=== PATIENT | male | born 1935 | race Caucasian/White ===

== ENCOUNTER 2016-10-02 05:43 | Emergency (ER) | payer MEDICARE, OTHER ==
[~2016-10-02] VITALS: Ht 185.4 cm; Wt 65.8 kg
--- OUTSIDE RECORDS SUMMARY | ~2016-10-02 | XMS ---
Demographics + + + | Address | [address] | | | [place] [address] | + + + | Preferred Language | Unknown | + + + | Marital Status | Unknown | + + + | Hinduism Affiliation | Unknown | + + + | Race | Unknown | + + + | Ethnic Group | Unknown | + + + Author + + + | Author | [facility] | + + + | Organization | [facility] | + + + | Address | [address] | | | [place] [address] | + + + | Phone | | + + + Care Team Providers + + + + | Care Medical Charge Entry Specialist Name | Role | Phone | + + + + Unavailable | Unavailable | + + + + PROBLEMS +---------+ + + +--------+ + + | Type | Condition | ICD9-CM | SFE37-AK | Onset | Condition | SNOMED | | | | Code | Code | Dates | Status | Code | +---------+ + + +--------+ + + | Problem | Osteoporos | | M81.0 | | Active | [id number] | | | is | | | | | | +---------+ + + +--------+ + + | Problem | Gastroesop | K21.9 | | | Active | [id number] | | | hageal | | | | | | | | reflux | | | | | | | | disease | | | | | | | | without | | | | | | | | esophagiti | | | | | | | | s | | | | | | +---------+ + + +--------+ + + | 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 | | | | | 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 | | | hyperplasi | | | | | | | | a with | | | | | | | | lower | | | | | | | | urinary | | | | | | | | tract | | | | | | | | symptoms, | | | | | | | | unspecifie | | | | | | | | d | | | | | | | | morphology | | | | | | +---------+ + + +--------+ + + | Problem | Hyperchole | | E78.0 | | Active | [id number] | | | sterolemia | | | | | | +---------+ + + +--------+ + + | Problem | Depression | | F32.9 | | Active | [id number] | +---------+ + + +--------+ + + | 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 | | | | | | +---------+ + + +--------+ + + | Problem | Hypertensi | I11.9 | | | Active | [id number] | | | ve | | | | | | | | cardiomyop | | | | | | | | athy, | | | | | | | | without | | | | | | | | heart | | | | | | | | failure | | | | | | +---------+ + + +--------+ + + | 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
[~2016-10-02 05:43] MED LIST: ACETAMINOPHEN325 M1 PO; ADVAIR 500-501 EACH INH; ALENDRONATE SOD70 MG PO; AMLODIPINE BESYL5 MG PO; ASPIRIN EC325 MG PO; ASPIRIN325 MG PO; ATORVASTATIN CA20 MG PO; CETIRIZINE HCL10 MG PO; CLINDAMYCIN HC150 MG PO; CYCLOBENZAPRINE10 MG PO; DILTIAZEM 24HR360 MG PO; DILTIAZEM ER240 M1 PO; DONEPEZIL HCL10 MG PO; FEOSOL325 MG PO; FERROCITE324 MG PO; FIBER LAXATIV0.52 GM PO; FLOMAX0.4 MG PO; IPRAT-ALBUT 0.5-3 ML INH; LEVAQUIN500 MG PO; LEVOFLOXACIN500 MG PO; LMX TOP; MELOXICAM15 MG PO; METAMUCIL660 GM PO; METOPROLOL SUC100 MG PO; METOPROLOL SUC200 MG PO; MIRTAZAPINE30 MG PO; MULTI VITAMIN1 EACH PO; NYSTATIN15 GM TOP; OMEPRAZOLE20 MG PO; OXYCODONE-ACET1 EAC1 PO; PERCOCET 5-3251 EACH PO; PREDNISONE20 MG PO; PROAIR HFA8.5 GM INH; RANITIDINE HCL150 MG PO; TAMSULOSIN HCL0.4 MG PO; VITAMIN C500 M1 PO; VITAMIN D1000 UNI1 PO; VITAMIN D5000 UNIT PO
[2016-10-02] MEDS ORDERED: ADVAIR 500-501 EACH INH (06:08)
[2016-10-02] MEDS ORDERED: PROAIR HFA8.5 GM INH (06:11)
[2016-10-02] MEDS ORDERED: ZITHROMAX250 MG PO (08:19)
== END 2016-10-02 08:38 | disposition home or self-care (01) ==
LOC: ED 05:43
DX: J44.9 Chronic obstructive pulmonary disease, unspecified (principal); F03.90 Unspecified dementia, unspecified severity, without behavioral disturbance, psychotic disturbance, mood disturbance, and anxiety; I10 Essential (primary) hypertension; E78.00 Pure hypercholesterolemia, unspecified; D32.9 Benign neoplasm of meninges, unspecified; K21.9 Gastro-esophageal reflux disease without esophagitis; Z87.891 Personal history of nicotine dependence; Z88.8 Allergy status to other drugs, medicaments and biological substances; Z79.899 Other long term (current) drug therapy; Z79.82 Long term (current) use of aspirin
CPT/HCPCS: 71010; 80053; 81001; 85025; 99283

== ENCOUNTER 2017-08-03 20:07 | Emergency (ER) | payer MEDICARE, OTHER ==
[~2017-08-03] VITALS: Ht 185.4 cm; Wt 65.8 kg
[~2017-08-03 20:07] MED LIST changes: +ZITHROMAX250 MG PO
[2017-08-03] MEDS ORDERED: ADVAIR 500-501 EACH INH (20:51)
--- NOTE | 2017-08-03 21:58 | EKG ---
[facility] [address] [facility] [place] [address] Signed Atrial fibrillation with rapid ventricular response Left axis deviation Nonspecific intraventricular block Abnormal ECG When compared with ECG of 22-JUN-2016 07:58, No significant change was found Confirmed by LI HIDALGO MD ([id number]) on 08/03/2017 9:58:08 PM Electronically Signed By: LI HIDALGO MD 08/03/17 2158 PATIENT NAME: JOVANMEGHNA CHRIS Electrocardiogram DATE OF : 39 PHYSICIAN: LI HIDALGO MD REPORT #: [id number] REPORT IS CONFIDENTIAL AND NOT TO BE RELEASED WITHOUT AUTHORIZATION
[2017-08-03] MEDS ORDERED: KEFLEX500 MG PO (22:35)
== END 2017-08-03 23:08 | disposition home or self-care (01) ==
LOC: ED 20:07
PROC: 0T9B70Z Drainage of Bladder with Drainage Device, Via Natural or Artificial Opening (ICD-10-PCS; principal; 2017-08-03)
DX: I48.0 Paroxysmal atrial fibrillation (principal); N39.0 Urinary tract infection, site not specified; I10 Essential (primary) hypertension; J44.9 Chronic obstructive pulmonary disease, unspecified; F03.90 Unspecified dementia, unspecified severity, without behavioral disturbance, psychotic disturbance, mood disturbance, and anxiety; K21.9 Gastro-esophageal reflux disease without esophagitis; F32.9 Major depressive disorder, single episode, unspecified; Z79.82 Long term (current) use of aspirin; Z79.899 Other long term (current) drug therapy
CPT/HCPCS: 51701; 71045; 80053; 81001; 83880; 84484; 85025; 85610; 85730; 87088; 93005; 93010; 96374; 99283

== ENCOUNTER 2017-09-07 17:28 | Inpatient (IN) | payer MEDICARE, OTHER ==
[~2017-09-07] VITALS: Ht 185.4 cm; Wt 53.7 kg
[~2017-09-07 17:28] MED LIST changes: +KEFLEX500 MG PO
--- NOTE | 2017-09-07 20:30 | NUR ---
ADMIT TO CCU PER STRETCHER. MOVED FROM STRETCHER TO BED. PT IS ON VAPOTHERM AT 30L FI02 32% TEA BEING MOVED WELL. PT HAS HX OF DEMENTIA AND IS POOR HISTORIAN. IS PLEASANT AND COOPERATIVE. GIVEN 20MG LASIX IV.
--- NOTE | 2017-09-07 21:15 | NUR ---
UP TO BSC, TO VOID AND HAVE SCANT BM. WAS GETTING UP ON OWN BUT BED ALARM ALERTED STAFF. TEA BEING UP FAIR. C/O BEING HUNGRY AND GIVEN APPLE SAUCE AND TURKEY SAND.
--- NOTE | 2017-09-07 22:11 | NUR ---
TOOK HAS MEDS WELL WITH PUDDING. READY FOR REST.
--- NOTE | 2017-09-07 23:11 | NUR ---
OOB, UP TO COMMODE TO VOID, TEA WELL.GETS OUT OF BED ON OWN, BED ALARM ON.
--- NOTE | 2017-09-08 00:29 | NUR ---
AWAKENED FOR ASSESSMENT. IS MORE CONFUSED NOW THAN EARLIER BUT IS COOPERATIVE.
--- NOTE | 2017-09-08 01:33 | NUR ---
FOUND DIGNA TO GET OOB. ASSISTED TO BSC, VOIDED LARGE AMT AND HAD LARGE SOFT BM. TEA BEING UP WELL. BACK TO BED. BED ALARM ON.
--- NOTE | 2017-09-08 03:53 | NUR ---
HAS BEEN MOSTLY AWAKE. STOOD AT BEDSIDE, VOIDED SMALL AMT. BREATH TONES ARE VERY DIM THROUGHOUT. EDEMA IS IMPROVING IN LOWER EXTREMETIES.
--- NOTE | 2017-09-08 05:58 | NUR ---
RESTING, DRINKING COFFEE
--- NOTE | 2017-09-08 06:41 | NUR ---
PT ASSISTED TO CHAIR PER HIS REQUEST. TEA FARR.
--- NOTE | 2017-09-08 07:04 | NUR ---
BACK TO BED, TIRED AFTER GETTING BACK TO BED. UPDATE GIVEN TO DAUGHTER.
--- NOTE | 2017-09-08 08:42 | NUR ---
PATIENT RESTING IN BED UPON INITIAL ASSESSMENT. RT IN ROOM WORKING WITH PATIENT ON USING THE IS. PT IS ON VAPOTHERM ON 30 L AND 32% FI02. ECHO TO BE DONE. PT FINISHED MOST OF HIS BREAKFAST.
--- NOTE | 2017-09-08 08:56 | NUR ---
PATIENT VERY TALKATIVE THIS AM AND SAYING THINGS LIKE, "NOW IF I TELL YOU TO TAKE CARE OF THESE PILLS, THEN DO SOMETHING WITH THEM. I WAS JUST HERE AND I TOLD THAT LADY TO GET RID OF THESE PILLS AND SHE DIDN'T LISTEN TO ME." PATIENT GETTING ECHO AT THIS TIME. CONTINUE TO MONITOR.
--- NOTE | 2017-09-08 10:41 | NUR ---
PATIENT'S FAMILY HERE TO VISIT PATIENT. FAMILY REQUESTING SCISSORS TO CUT PATIENT'S SONG. PT HAS BEEN CONFUSED THIS AM ABOUT WHO THIS RN IS, WHO HIRED ME, AND WHY HE IS HERE IN THIS ROOM. PT RE-ORIENTED BEST POSSIBLE. PT ADMITS THAT HE HAS A POOR MEMORY. CHAIR ALARM ON. PT IMPULSIVE AND GETS UP TO VOID QUITE OFTEN WITHOUT CALLING FOR HELP.
--- NOTE | 2017-09-08 11:33 | NUR ---
DR. HIDALGO IN ROOM AT THIS TIME EVALUATING PATIENT. PATIENT NOW BACK IN BED. FAMILY REMAINS IN ROOM. CONTINUE TO MONITOR. VITALS AND ASSESSMENT COMPLETE.
--- NOTE | 2017-09-08 12:46 | NUR ---
PATIENTS DAUGHTER HERE AT THIS TIME. PT RECEIVED IV MAG AND IV LASIX AT THIS TIME. BED ALARM BACK ON FOR SAFETY.
--- NOTE | 2017-09-08 15:15 | NUR ---
AMBULATED TO BR TO VOID 450 ML OF CLEAR YELLOW URINE.IS UNSTABLE ON FEET. ASSISTED BACK TO BED. WARM BLANKET GIVEN.
--- NOTE | 2017-09-08 15:28 | EKG ---
[facility] [address] [facility] [place] [address] Signed Normal sinus rhythm Possible Left atrial enlargement Cannot rule out Anterior infarct , age undetermined Abnormal ECG When compared with ECG of 03-AUG-2017 20:13, Significant changes have occurred Confirmed by LI HIDALGO MD ([id number]) on 09/08/2017 3:28:01 PM Electronically Signed By: LI HIDALGO MD 09/08/17 1528 PATIENT NAME: MEGHNA ALDANA Electrocardiogram DATE OF : 39 PHYSICIAN: LI HIDALGO MD REPORT #: [id number] REPORT IS CONFIDENTIAL AND NOT TO BE RELEASED WITHOUT AUTHORIZATION
--- NOTE | 2017-09-08 16:18 | NUR ---
PATIENT NOTED TO BE CLIMBING OUT OF BED AND VERY CONFUSED ABOUT WHERE HE IS, WHY HE IS HERE, WHO WE ARE, AND THE OVERALL EVENTS OF HIS HOSPITALIZATION. ASSESSMENT COMPLETE AND VITALS.
--- NOTE | 2017-09-08 17:00 | NUR ---
PT ARRIVED FROM CCU VIA CHAIR. PT IS VERY CONFUSED TO WHERE HE IS, WHY, AND WHO ALL THE STAFF IS. PT REORIENTED AND APPEARS TO HAVE CALMED DOWN. DINNER SET UP FOR PT AND PT EATING INDEPENDENTLY, DRINKING ENSURE WITH DINNER. PT ORIENTED TO SELF ONLY AT THIS TIME. IV SL AND FLUSHES WELL. PT SATTING 92% ON 3LNC. CALL LIGHT WITHIN REACH AND CHAIR ALARM ON.
--- NOTE | 2017-09-08 19:07 | NUR ---
PT SITTING UP IN RECLINER VISITING WITH DAUGHTER. STILL REQUIRING FREQUENT REORIENTATION. CHAIR ALARM ON.
--- NOTE | 2017-09-08 19:53 | NUR ---
RECEIVED REPORT FROM DAY SHIFT RN. PATIENT IS RESTING IN RECLINER WATCHING TV. PATIENT HAS CHAIR ALRM IN PLACE.
--- NOTE | 2017-09-08 21:30 | NUR ---
PATIENT ASSESMENT COMPLETED. PATIENTS EVENING MEDICATIONS GIVEN PER ORDER. PATIENT STATED "I DONT KNOW YOU TELL ME". WHEN ASKED ANY QUESTIONS. PATIENT IS RESTING IN RECLINER RESTING. PATIENT DENIES ANY NEEDS. CALL LIGHT IN REACH. CHAIR ALARM IN PLACE.
--- NOTE | 2017-09-08 23:36 | NUR ---
PATIENT ASSISTED BY CNAS TO BED. PATIENT STATES "I DONT KNOW WHEN ASKED ABOUT NEEDS". PATIENT IS NOW RESTING IN BED. CALL LIGHT IN REACH. BED ALARM ON FOR SAFETY.
--- NOTE | 2017-09-09 02:59 | NUR ---
PATIENTS VITALS TAKEN AND RECORDED BY COMPUTER NETWORK ENGINEER. PATIENTS O200 MEDICATIONS GIVEN PER ORDER. PATIENT GIVEN WARM BLANKET. PATIENT REMAINS CONFUSED. ATTEMPTED TO REORIENT PATIENT. PATIENT REMAINS CONFUSED. BED ALARM ON FOR SAFETY AND CALL LIGHT IN REACH.
--- NOTE | 2017-09-09 05:07 | NUR ---
PATIENT RESTED WELL THROUGHOUT THE SHIFT. PATIENT IS ON A CARDIAC DIET AND 1500ML FLUID RESTRICTION. PATIEN IS A DAILY STANDING WEIGHT. PATIEN IS ON 2L VIA NC. PATIENT IS [place] [facility] [facility] PATIENT GETS SOB W/EXERTION. PATIENT IS CONFUSED, FORGETFUL AND IMPULSIVE AT TIMES. BED ALARM IS ON FOR PATIENT SAFETY. PATIENT REQUIRES FREQUENT REORIETING.
--- NOTE | 2017-09-09 05:33 | NUR ---
PATIENTS VITALS TAKEN AND RECORDED. PATIENTS INTAKE AND OUPUT RECORDED. PATIENT REMAINS CONFUSED. PATIENT REQUIRES REORIENTING TO TIME, DATE, EVENT, AND SURROUNDINGS. PATIENT DENIES ANY NEEDS. CALL LIGHT IN REACH. AND BED ALARM IS ON FOR SAFETY.
--- NOTE | 2017-09-09 07:50 | NUR ---
PATIENT SITTING UP IN BED, PATIENT CONCERNED THAT HIS IV SITE IS HURTING, LOOKS FINE, WILL REPORT HIS CONCERN TO KRISTY ARIAS. CALL LIGHT IN REACH
--- NOTE | 2017-09-09 10:17 | NUR ---
PT UP TO RESTROOM WITH FWW AND 1PA. PT WEAK BUT ABLE TO WALK TO TOILET. VOIDED LARGE AMT LIGHT YELLOW URINE. PT REPEATEDLY ASKING SAME QUESTIONS BUT REMAINS PLEASANT. PT NOW BACK IN BED WITH CALL LIGHT IN REACH AND REDUCATED ON IT
[2017-09-09] MEDS ORDERED: REFRESH PLUS1 EACH OU (10:39)
[2017-09-09] MEDS ORDERED: FUROSEMIDE20 MG PO (10:54)
[2017-09-09] MEDS ORDERED: ZYRTEC10 MG PO (10:55)
--- NOTE | 2017-09-09 10:57 | NUR ---
ASSESSED PT VS. GAVE 150 OF FREE WATER. PT SLEEPING UNTIL AWOKEN FOR VITALS. PT DENIES CONCERNS.
--- NOTE | 2017-09-09 11:51 | NUR ---
Patient up in chair for lunch. Chair alarm on, call light in reach
--- NOTE | 2017-09-09 13:30 | NUR ---
PT SITTING UP IN CHAIR. STATES HE MIGHT GO TO SLEEP. PLACED TWO WARM BLANKETS. PT TOLERATING FLUID RESTRICTION WELL. EDEMA IN ANKLES REMAINS APPROX 1+. LEGS ELEVATED.
--- NOTE | 2017-09-09 15:01 | NUR ---
PT UP TO RESTROOM WITH 800 OUT. PT WEAK AND SLIGHTLY UNSTEADY ON FEET. STAYED IN RESTROOM WITH HIM. DIETARY IN ROOM TAKING DINNER ND BREAKFAST ORDER.
--- NOTE | 2017-09-09 16:42 | NUR ---
PT STARTING TO GET A LITTLE AGITATED. REDIRECTED TO GETTING OUT OF BED AND SITTING IN CHAIR FOR DINNER. PT HAPPY TO OBLIGE. REMAINS ON 3L NC. DENIES SOB.
--- NOTE | 2017-09-09 16:43 | NUR ---
MED REC COMPLETE
--- NOTE | 2017-09-09 17:17 | NUR ---
PATIENT SITTING UP IN CHAIR, EATING DINNER. VITALS AND I/OS CHARTED. CALL LIGHT IN REACH
--- NOTE | 2017-09-09 18:36 | NUR ---
PT UP IN CHAIR AND BACK TO BED MULTIPLE TIMES TODAY. ORIENTED TO SELF ONLY. DENIES PAIN. UO QS. MULTIPLE DOSES OF LASIX. k+ GIVEN X1. TOLERATING FLUID RESTRICTION, ALTHOUGH FORGETS AND ASKS FOR COFFEE EVERYTIME.
--- NOTE | 2017-09-09 19:25 | NUR ---
RECEIVED REPORT FROM DAY SHIFT RN. PATIENT IS RESTING IN BED WITH EYE CLOSED, RR 16. BED ALARM IS ON FOR SSAFETY AND CALL LIGHT IN REACH.
--- NOTE | 2017-09-09 21:55 | NUR ---
PAIENT ASSEMENT COMPLETED. PATIENTS VITALS TAKEN AND RECORDED. PATIENTS EVENIG MEDICATIONS GIVEN PER ORDER. PATIENT IS DROWSY AND ONLY WOKE UP MOMENTARILY WHEN VITALS WHERE TAKEN AND TO TAKE HIS MEDICATION. PATIENT CONTINUES TO REST IN BED. NO NEEDS NOTED. CALL LIGHT IN REACH. BED ALARM IS ON FOR SAFETY.
--- NOTE | 2017-09-09 23:21 | NUR ---
PATIENT IS RESTING IN BED WITH EYES CLOSED, RR 16. CALL LIGHT IN REACH AND BED ALARM IS ON FOR SAFETY.
--- NOTE | 2017-09-10 02:31 | NUR ---
PATIENT ASSISTED TO STAND AT THE BEDSIDE W/FWW. PATIENT WAS ABLE TO VOID USING URINAL. PATIENTS WAS INCONTINENT AND BEDDING CHANGED. PATIENTS GOWN CHANGED ALSO. PATIENT IS NOW BCAK IN BED RESTING. PATIENTS VITLAS TAKEN AND RECORDED. PATIENTS 0200 MEDICATIONS GIVEN PER ORDER. PATIENT IS COOPERATIVE WITH CARE. ATTEMPTED TO REORTINET PATIENT. PATIENT STATED "WHATEVER YOU SAY LADY". PATIENT IS ON 3L VIA NC. PATIENTS BED ALARM IS ON FOR SAFETY AND CALL LIGHT IN REACH.
--- NOTE | 2017-09-10 04:08 | NUR ---
PATIENT IS RESTING IN BED WITH EYES CLOSED. RR 17.
--- NOTE | 2017-09-10 05:26 | NUR ---
PATIENT RESTED WELL THROUGHOUT THE SHIFT. PATIENT IS ON A CARDIAC DIET. PATIENT IS ON A 1500ML FLUID RESTRICTION. PATIENT IS A DAILY WEIGHT. PATIENT IS A 1PA W/FWW. PATIENT IS ON 3L VIA NC AND HE IS ON CHRONIC OXYGEN. PATIENT IS FORGETFUL AND IMPULSIVE AT TIMES. PATIENT REQUIRES A CHAIR/BED ALARM FOR SAFETY. PATIENT IS SOB W/EXERTION.
--- NOTE | 2017-09-10 05:29 | NUR ---
PATIENT ASSISTED TO STAND AT THE BEDSIDE W/FWW. PATIENT WAS ABLE TO VOID. PATIENT IS NOW RESTING IN RECLINER. CHAIR ALARM IN PLACE. DAILY WEIGHT TAKEN AND RECORDED. VITALS TAKEN AND RECORDED. PATIENTS REMAINS ON 3L VIA NC. PATIENT REORIENTED. PATIENT REMAINS UNAWARE OF DATE, TIME, EVENT AND SURROUNDINGS. CALL LIGHT IN REACH.
--- NOTE | 2017-09-10 07:26 | NUR ---
PT RESTING IN BED ALERT REPORTS HE WOULD LIKE TO HAVE MORE COFFEE, PT WAS GIVEN 200ML OF COFFEE AT 0630, DUE TO FLUID RESTRICTION PT WILL HAVE TO WAIT FOR BREAKFAST TO HAVE MORE FLUIDS. NO DISTRESS NOTED AT THIS TIME. PT ON 3L OXYGEN AT THIS TIME. BEDSIDE REPORT FROM A[facility] WAGNER.
--- NOTE | 2017-09-10 08:25 | NUR ---
PATIENT STATES HE WOULD NOT LIKE A SHOWER TODAY "OR ANYTHING TO DO WITH THAT". PATIENT STATES HE HAD A SPONGE BATH YESTERDAY. RN IN ROOM. THIS SALVAGE INSPECTOR WOOD PARTS WILL REAPPROACH AT ANOTHER TIME.
--- NOTE | 2017-09-10 08:28 | NUR ---
PT SITTING UP IN RECLINER EATING BREAKFAST. NO COMPLAINTS. HAPPY TO HAVE COFFEE WITH BREAKFAST
--- NOTE | 2017-09-10 10:27 | NUR ---
PT UP TO BATHROOM, ONE PERSON ASSIST. PT HAS A SKIN TEAR ON HIS SPINAL PROCESS ALLEYVN PLACED. 3/4 IN [place] IN SIZE
[2017-09-10] MEDS ORDERED: METOPROLOL SUC200 MG PO (13:06)
[2017-09-10] MEDS ORDERED: KLOR-CON 1010 MEQ PO (13:10)
[2017-09-10] MEDS ORDERED: DILTIAZEM 24HR360 MG PO (13:10)
[2017-09-10] MEDS ORDERED: FUROSEMIDE20 MG PO (13:10)
--- NOTE | 2017-09-10 14:03 | NUR ---
PT RESTING IN BED. NO DISTRESS NOTED. DISCHARGE BACK TO [facility] ARRANGMENTS BEING MADE. PT AWARE FAMILY NOTIFIED.
--- NOTE | 2017-09-10 14:30 | NUR ---
CALLED REPORT ON DISCHARGE INSTRUCTIONS TO LATASHA CARLOS AT [facility].
--- NOTE | 2017-09-10 14:43 | NUR ---
PT SITTING UP IN BED, ALERT AND ORIENTED. HE SAID HE IS HEADING BACK TO "WHERE I CAME FROM". HE WASN'T QUITE SURE HE WANTED TO CALL [facility] HIS HOME, BUT WE WORKED OUR WAY TO THAT DECISION. PT PLEASANT AND SEEMED PLEASED WITH THE DC ORDERS. GAVE A BLESSING, WILL FOLLOW NEEDED
== END 2017-09-10 14:35 | disposition home or self-care (01) | DRG 291 ==
LOC: ED 17:28 → CCU 19:27 → MS 19:27
PROVIDERS: ADMIT Internal Medicine
DX: I11.0 Hypertensive heart disease with heart failure (principal); J96.21 Acute and chronic respiratory failure with hypoxia; J44.1 Chronic obstructive pulmonary disease with (acute) exacerbation; I50.33 Acute on chronic diastolic (congestive) heart failure; N40.0 Benign prostatic hyperplasia without lower urinary tract symptoms; K21.9 Gastro-esophageal reflux disease without esophagitis; E78.5 Hyperlipidemia, unspecified; F01.50 Vascular dementia, unspecified severity, without behavioral disturbance, psychotic disturbance, mood disturbance, and anxiety; I35.0 Nonrheumatic aortic (valve) stenosis; Z99.81 Dependence on supplemental oxygen; J43.9 Emphysema, unspecified; M81.0 Age-related osteoporosis without current pathological fracture; Z66 Do not resuscitate
CPT/HCPCS: 36415; 71045; 80048; 80053; 82803; 83605; 83735; 83880; 84484; 85025; 93005; 93010; 93306; 94640; 94660; 94667; 94760; 94799; 96374; 99285; J1650; J2930; J3475